=== PATIENT | female | born 1970 | race Two or more races ===

== ENCOUNTER 2021-10-27 19:13 | Emergency (ER) | payer BC ==
[2021-10-27 19:27] VITALS: BP 144/95; PULSE 111; TEMP 97.8; BMI 25.4
[2021-10-27] MEDS ORDERED: KETOROLAC TROMETHAMINE 30 MG/1 ML VIAL IM ONE (20:27)
[2021-10-27] MEDS ORDERED: KETOROLAC TROMETHAMINE 30 MG/1 ML VIAL ONE (21:54)
== END 2021-10-27 22:18 | disposition home or self-care (01) ==
LOC: JER 19:13
DX: B02.23 Postherpetic polyneuropathy (principal)
CPT/HCPCS: 99281-25